=== PATIENT | male | born 1980 | race Caucasian/White ===

== ENCOUNTER 2020-12-05 14:35 | Outpatient (RCR) | payer BC, SELFPAY | END 2021-01-24 23:59 | LOC: IMMUN 14:35 | PROVIDERS: Visit Provider Family Medicine | DX: Z23 Encounter for immunization (principal) | CPT/HCPCS: 0001A; 91300 ==

== ENCOUNTER 2025-01-24 20:17 | Emergency (ER) | payer OTHER, BC, SELFPAY ==
[2025-01-24 20:18] VITALS: BP 148/90; PULSE 73; RESP 14; TEMP 36.3; O2SAT 98; BMI 27.4
--- NOTE | 2025-01-24 20:35 | ED.RN ---
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
--- OUTSIDE RECORDS SUMMARY | 2025-01-24 20:54 | XMS RPT_ITS | CCD ---
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 Role Phone DARLINE MARTINEZ Unavailable Unavailable PHYSICIAN, NONE Unavailable Unavailable Abimael Casanova Attending Provider Wes Arndt Attending Unavailable Abimael Casanova Attending Unavailable Medications Current Medications Medication Drug Class(es) Dates Sig (Normalized) Sig (Original) ibuprofen 200 mg oral capsule (1 source) Nonsteroidal Anti-inflammatory Drug Start: 02-14-2023 take 1 capsule by mouth every six hours as needed Ibuprofen 200 mg capsule Active 200 mg PO EVERY 6 HOURS as needed February 14, 2023 12:00am Completed/Discontinued Medications Medication Drug Class(es) Dates Sig (Normalized) Sig (Original) amoxicillin 500 mg oral tablet (1 source) Penicillin-class Antibacterial Start: 05-09-2024 End: 01-05-2025 take 1 tablet by mouth three times daily Amoxicillin 500 mg tablet Discontinued 500 mg PO THREE TIMES A DAY 30 0 May 09, 2024 1:00am January 05, 2025 8:54am cephalexin 500 mg oral capsule (1 source) Cephalosporin Antibacterial Start: 07-03-2023 End: 07-10-2023 take 1 capsule by mouth three times daily Cephalexin 500 mg capsule Discontinued 500 mg PO THREE TIMES A DAY 21 7 0 July 03, 2023 1:00am July 09, 2023 1:00am July 10, 2023 1:26am cyclobenzaprine hydrochloride 10 mg oral tablet (1 source) Muscle Relaxant Start: 02-14-2023 End: 02-19-2023 take 1 tablet by mouth three times daily as needed for muscle spasms Cyclobenzaprine 10 mg tablet Discontinued 10 mg PO THREE TIMES A DAY as needed for muscle spasm 15 5 0 February 14, 2023 12:00am February 18, 2023 12:00am February 19, 2023 12:03am silver sulfADIAZINE 10 mg/ml topical cream (1 source) Sulfonamide Antibacterial Start: 07-03-2023 End: 05-09-2024 Silver Sulfadiazine (Silvadene) 1 % cream Discontinued 1 NMA TOPICAL TWICE A DAY 29 07July 03, 2023 1:00am May 09, 2024 3:08pm apply a 1.5 mm thickness Problems Problem Classification Problem Date Documented Da te Episodic/Chronic Jack (2 sources) Partial thickness burn; Translations: [Blisters, epidermal loss [second degree], unspecified site] 07-03-2023 Episodic Other injuries and conditions due to external causes (1 source) Muscle strain; Translations: [Other injury of unspecified body region, initial encounter] 02-14-2023 Episodic Results Test Name Value Interpretation Reference Range Facil ity Urgent Care Visit Reporton 0 01-05-2025 Urgent Care Visit Report [facility] [address], [address] [place] [address] OFFICE VISIT Date of Service: 01/05/25 MR#: [id number] Acct: [id number] Name: DELVIN PABLO Rep #: [id number] : 1980 Provider: JILLIAN Frias Age/Sex: 44/M Location: [facility] Status: Signed Intake Vital Signs 02/14/23 12:06 01/05/25 08:54 Height 6 ft 4 in BP 102/68 Position Sitting Respiration 16 Pulse 61 Temp 97.7 F L Temp Source Oral Pulse Oximetry (%) 98 Oxygen Delivery Method room air Intake Visit Reasons: SORE THROAT Accompanied by: Self Allergies No Known Allergies Allergy (Verified 01/05/25 09:01) Medications ???Medication ???Instructions ???Recorded ???Confirmed ???Type ibuprofen 200 mg capsule 200 mg PO Q6H PRN 02/14/23 5 History Nurse's Note: Patient has a ST. Patient states it started itching last night and then this morning its sore. Patient right ear is also bothering him and he has some sinus pressure and drainage going on. Patien t states that he always has some of that going on. PFSH Medical History Back pain Difficulty balancing Knee pain Neck pain Shoulder pain HPI HPI Details: DELVIN PABLO, is a 44 M who presents to the office today for complaint of sore throat starting last night. Patient describes his sore throat as a itchy type throat. He denies fever, chills or sweats. No nausea, vomiting or diarrhea. No hemoptysis, shortness of breath or difficulty breathing. No loss of taste or smell. No other associated symptoms or alleviating/aggravatin g factors. ROS Const Constitutional: Positive for other (ROS negative x6 except what was placed in HPI) Exam Const General: cooperative and healthy appearing HENMT Head: normal to inspection Ears: hearing grossly normal bilaterally and EAC's normal Nose: external nose normal and nasal discharge clear Mouth: oral mucosae normal Throat: abnormal tonsil bilaterally Resp Effort Inspection: normal respiratory effort Auscultation: Bilateral: Clear to Auscultation Cardio Rate: regular rate Rhythm: regular rhythm Neuro General: patient alert Psych Appearance: grossly normal Mental Status: mental status grossly normal Results POC Marie Rapid Strep POC Marie Rapid Strep Negative Last Edit by Maritza Cardona MA on 01/05/25 09:16 Coding Level of Care Code Off vis,est,level 3 Diagnoses Acute pharyngitis J02.9 Assessment and Plan Assessment and Plan (1) Acute pharyngitis: Status: Acute Plan: Patient tested negative for strep in the office today. Encouraged to get plenty of rest, drink lots of clear liquids, and use Tylenol or Ibuprofen (unless contraindicated) for fever and comfort. Patient also educated on other symptomatic management techniques. To be seen in 7-10 days if no improvement; sooner if worsening of symptoms. Patient advised of potential red flags and when appropriate to report to the ED. Patient verbalized understanding and agreement with all the above. Orders: Orders POC Marie Rapid Strep A Today 01/05/25 0934 Date Abimael Suero Signature: Date (if applicable) CC: Normal [facility] Urgent Care Visit Reporton 1 07-09-2023 Urgent Care Visit Report [facility] [address], [address] [place] [address] OFFICE VISIT Date of Service: 05/09/24 MR#: [id number] Acct: [id number] Name: DELVIN PABLO Rep #: [id number] : 1980 Provider: JILLIAN Villavicencio Age/Sex: 44/M Location: [facility] Status: Signed Intake Vital Signs 02/14/23 12:06 05/09/24 14:06 Height 6 ft 4 in BP 120/70 Blood Pressure Location Lt brachial Position Sitting Respiration 15 Pulse 66 Pulse Source NIBP Temp 98.0 F Temp Source Oral Pulse Oximetry (%) 97 Oxygen Delivery Method room air Intake Visit Reasons: CENTENO/ST/BILAT EAR PAIN/SINUS PRESSURE/PAIN Chief Complaint: CENTENO, ST, ear pain, face pain, diarrhea Doctor Naturopathic Required: No Is patient in pain?: Yes Allergies No Known Allergies Allergy (Verified 05/09/24 14:08) Medications ???Medication ???Instructions ???Recorded ???Confirmed ???Type ibuprofen 200 mg capsule 200 mg PO Q6H PRN 02/14/23 07/03/23 History amoxicillin 500 mg tablet 500 mg PO TID #30 tabs 05/09/24 05/09/24 Rx Have you fallen in the past year?: No Nurse's Note: CENTENO, ST, ear pain, face pain, diarrhea x 5 days. denies fever, cough, congestion. concern for flu, daughter with pneumonia PFSH Medical History Back pain Difficulty balancing Knee pain Neck pain Shoulder pain HPI HPI Chief Complaint: CENTENO, ST, ear pain, face pain, diarrhea Details: DELVIN PABLO, is a 44 M who presents to the office today for [facility] evaluation at the [facility] for approximately 1-week history of progressively worsening facial pressure/congestion with purulent postnasal drip, CENTENO, irritated/sore throat. Fever and diarrhea initially - now resolved. Currently no complaints of fever, chills, myalgias, fatigue, runny nose, or nausea/vomiting/diarrh ea. No complaints of chest pain/shortness of breath/dyspnea on exertion. Requesting POC screening for COVID-19 and influenza. No close contacts with similar complaints. No other associated symptoms and no other alleviating/aggravatin g factors. ROS Const Constitutional: No other (as above) Exam Const General: cooperative, healthy appearing and no acute distress Nutritional Appearance: average body habitus Orientation: alert, awake and oriented x3 HENMT Head: normal to inspection Ears: hearing grossly normal bilaterally, external ears normal, TM's normal bilaterally and EAC's normal Nose: external nose normal, nares normal, septum normal and no nasal discharge Face and sinus: normal facial exam, sinuses nontender (w/ R>L maxillary fullness to palpation) and face symmetric Mouth: oral mucosae normal, lip normal, tongue normal and oropharynx normal Throat: posterior oropharynx normal, tonsils normal, uvula midline and postnasal drainage (Purulent) Eyes General: appearance normal, both eyes and all related structures Neck Neck: normal visual inspection, full ROM, no meningeal signs, supple and lymphadenopathy (Bilateral anterior cervical lymph node swelling/tender to palpation) Neck mass: No Thyroid: thyroid normal Chest Chest palpation inspection: normal inspection of the chest Resp Effort Inspection: normal respiratory effort and able to speak in complete sentences Auscultation: Bilateral: Clear to Auscultation Cardio Palpation: normal PMI Rate: regular rate Rhythm: regular rhythm Heart Sounds: S1 normal, S2 normal, no gallops, no murmurs and no rubs Pulses: radial pulses present GI Inspection: normal to inspection Skin General: no rashes or lesions noted Neuro General: patient alert, patient awake and patient oriented x3 Cognition: normal cognition Speech: speech normal Psych Appearance: grossly normal Mental Status: mental status grossly normal Mood: congruent mood Affect: normal affect Speech and Movement: speech and movement normal Attitude: cooperative Diagnoses Acute maxillary sinusitis, unspecified J01.00 Contact with or exposure to other viral diseases Z20.828 Assessment and Plan Assessment and Plan (1) Acute maxillary sinusitis, unspecified: Status: Acute (2) Contact with or exposure to other viral diseases: Status: Acute Plan: See POC results. Amoxicillin as prescribed today. Supportive measures as instructed today. Follow-up with PCP in 3 to 5 days should symptoms not improve, sooner should symptoms worsen or any other concerns develop. Patient states acknowledging understanding all the above. Results POC MARIE Covid FluAB PCR POC Marie Covid PCR Not Detected Last Edit by Selene Lee on 05/09/24 14:27 POC MARIE FLU NOT DETECTED FLU A B Last Edit by Selene Lee on 05/09/24 14:27 Coding Level of Care Code Off vis,est,level 3 Assessment and Plan Assessment and Plan Orders: O (more content not included)... Normal [facility] Vital Signs Date Time Vital Sign Value Performing Clinician Tamiai faith 01-05-2025 08:54-0400 Body temperature 97.7 [degF] Abimael WALSH Work Phone: [facility] 01-05-2025 08:54-0400 Diastolic blood pressure 68 mm[Hg] Abimael WALSH Work Phone: [facility] 01-05-2025 08:54-0400 Heart rate 61 /min Abimael WALSH Work Phone: [facility] 01-05-2025 08:54-0400 Respiratory rate 16 /min Abimael WALSH Work Phone: [facility] 01-05-2025 08:54-0400 SaO2% (BldA) [Mass fraction] 98 % Abimael WALSH Work Phone: [facility] 01-05-2025 08:54-0400 Systolic blood pressure 102 mm[Hg] Abimael WALSH Work Phone: [facility] Encounters Encounter Date Encounter Type Care Provider Facility Start: 01-05-2025 End: 01-05-2025 Patient encounter procedure Abimael [facility]AL[facility] Work Phone: Start: 01-05-2025 End: 01-05-2025 ambulatory Abimael WASLH [facility] Start: 05-09-2024 End: 05-09-2024 ambulatory Wes WALSH Facility[place] Start: 07-03-2018 End: 07-03-2018 Patient encounter procedure DARLINE MARTINEZ Facility:A Payers Date Payer Category Payer Unknown [id number] 2018 Self-pay 1980 Unknown [id number] Unknown [id number] Unknown [id number] Social History Date Type Detail Facility Tobacco smoking stat us MEIS Unknown if ever smoked [facility] Work Phone: Start: 1980 Sex Assigned At Male [facility] Evaluation note Note Date & Type Note Facility Evaluation note No assessment information availa ble [facility] Work Phone: Reason for referral (narrative) Note Date & Type Note Facility Reason for referral (narrative) No reason for referral information available [facility] Work Phone: Summary Purpose Family History No Family History Records FoundNo Family History Records Found Advance Directives No Advanced Directives Records FoundNo Advanced Directives Records Found Chief Complaint and Reason for Visit Chief Complaint Admit Date SORE THROAT January 05, 2025 8:44a m Additional Source Comments (unrecognized sect ion and content) No Status Records FoundNo Status Records Found INFORMATION SOURCE (unrecogn ized section and content) DATE CREATED AUTHOR 07/03/2018 [facility] ([place]) DATE CREATED AUTHOR AUTHOR'S ORGANIZ ATION 01/07/2025 [facility] Teams (unrecognized sec tion and content) Team Status: Inactive Member Role/Relationship Status Dates JILLIAN Chavis Attending Provider Active Sta rt: January 05, 2025 End: January 05, 2025 Goals (unrecognized section and content) Goals may be documented in a n alternate section FOR RECORDS PERTAINING TO PATIENTS WHO ARE OR HAVE BEEN ENROLLED IN A CHEMICAL DEPENDENCY/SUBSTANCEABUSE PROGRAM, SOME INFORMATION MAY BE OMITTED. This clinical summary was aggregated from multiple sources. Caution should be exercised in using it in the provision of clinical care. This summary normalizes information from multiple sources, and as a consequence, information in this document may materially change the coding, format and clinical context of patient data. In addition, data may be omitted in some cases. CLINICAL DECISIONS SHOULD BE BASED ON THE PRIMARY CLINICAL RECORDS. [employer] [facility]. provides no warranty or guarantee of the accuracy or completeness of information in this document.
--- NOTE | 2025-01-24 21:02 | EDS_ITS ---
HPI History of Present Illness Chief Complaint: Laceration Narrative Narrative: 44-year-old male who denies significant past medical history, [id number], presents with injury to his left fifth fingertip that he sustained approximately an hour and a half ago. He was pushing a metal hopper that was full, when it became crushed between another empty metal hopper. He sustained a laceration to the tip of his left fifth digit. He only has pain when the area is being manipulated. He is unsure of his last tetanus immunization and denies other injury. Tetanus Immunization: [facility] Medical History Difficulty balancing Back pain Neck pain Knee pain Shoulder pain Home Medications Medication Instructions Recorded Last Taken Type ibuprofen 200 mg capsule 200 mg PO Q6H PRN pain 02/14 Unknown History cephalexin 500 mg capsule 500 mg PO Q6 #40 CAPSULES Unknown Rx Allergy/AdvReac Type Severity Reaction Status Date / Time No Known Allergies Allergy Verified 01/25/25 14:10 Social History Smoking Status: Former smoker ROS ROS ED ROS Narrative Review of systems positive for crush injury to tip of left fifth digit of the hand. Denies other injury. EXAM Physical Exam Narrative Exam Narrative: GCS 15. ABCs intact. Focused examination of the tip of the left fifth digit does show a 1 cm laceration running towards the finger pad and under the tip of the nail. There is no damage to the actual nail noted, but positive subungual hematoma. Full range of motion at the DIP and PIP of the fifth digit. Palpable radial pulse. Const Vital Signs: 01/24/25 20:18 Temperature 97.3 F L Temperature Source Temporal Pulse Rate 73 Respiratory Rate 14 Blood Pressure 148/90 H Blood Pressure Mean 109 Pulse Ox 98 Oxygen Delivery Method Room Air MDM MDM MDM Narrative Medical decision making narrative: Differential diagnosis includes but not limited to open tuft fracture versus crush injury with laceration to tip of fifth finger. He was given Tylenol 1 g orally, a Adacel immunization, and x-rays obtained of the left fifth digit. On my individual interpretation of the x-ray, there is an open tuft fracture. I reviewed the radiology report which confirms my independent interpretation. I discussed patient with Dr. Beck with hand surgery. He was given his first dose of Keflex here and prescription written to take 4 times a day for the next 10 days. Discussed with the patient nailbed removal and nailbed laceration repair. See procedure note below for details. Procedure note: Lidocaine 1% used as a metacarpal/digital block. Small amount needed to be used locally. Total of 5 simple interrupted sutures used in finger pad laceration that measured approximately 1.2 cm using 5-0 Ethilon. Additionally 1 small laceration, 0.5 cm and linear located laterally was repaired using 1 simple interrupted suture of 5-0 Ethilon. Nail was removed but left partially intact at the germinal matrix. Nailbed laceration repair of irregular 0.75 cm laceration was used using available 5-0 Vicryl with a total of 4 simple interrupted sutures. Patient tolerated procedure well. This was performed after finger soaking and cleansing of the wound. Vaseline gauze dressing applied per RN and patient placed in large bulky dressing. He is to follow-up with Dr. Beck tomorrow in clinic. He was given a workability note as well for his return to work tomorrow. Return instructions to the emergency department were reviewed. Disposition is discharged home in stable condition. History & Record Review Discussion w/independent historian: Patient Additional record(s) reviewed:: No prior records (No prior ED visits) Management Discussion w/another healthcare provider: Geophysicist (Dr. Beck, Plastic Surgery/Hand) Discharge Plan Triage Chief Complaint: Laceration ED Provider: Tip Agarwal Dx/Rx/DC Orders Clinical Impression: Open fracture of tuft of distal phalanx of finger, Nailbed laceration, finger, Crushing injury of distal finger Instructions: ED Crush Injury, Hand, ED Fracture, Finger, Open, ED Laceration, Hand: All Closures Prescriptions: New cephalexin 500 mg capsule 500 mg PO Q6 Qty: 40 0RF No Action ibuprofen 200 mg capsule 200 mg PO Q6H PRN (Reason: pain) Primary Care Provider: Care Physician,No Primary Referrals: Jimmie Beck MD [Med Staff - Active Staff] - 1 Day Care Physician,No Primary [Primary Care Provider] - Activity Restrictions/Additional Instructions: Take the antibiotic as directed. Return with increased bleeding, new or worsen ing symptoms. Follow-up with plastic surgery/hand tomorrow for wound check. Print Language: Vietnamese Disposition Disposition: Home, Self Care Discharge Date/Time: 01/24/25 23:33
--- NOTE | 2025-01-24 21:12 | RAD_ITS ---
PROCEDURE: FINGER(S) MIN 2 VIEWS 01/24/2025 REASON FOR EXAM: TRAUMA TECHNIQUE: FINGER(S) MIN 2 VIEWS COMPARISON: No FINDINGS: Distal laceration. Displaced tuft fracture, which is an open fracture. No foreign body or dislocation. RAD/Finger(s) Min 2 Views IMPRESSION: Distal 5th digit injury. [facility]
[2025-01-24] MEDS: Lidocaine 1% (20 ml mdv) 20 ML Vial INFILT (21:35)
[2025-01-24 22:18] VITALS: BP 146/90; PULSE 70; RESP 18; O2SAT 95
[2025-01-24 23:20] VITALS: BP 146/90; PULSE 70; RESP 18; TEMP 36.3; O2SAT 95
== END 2025-01-24 23:33 | disposition home or self-care (01) ==
PROVIDERS: Emergency Provider Emergency Medicine; Visit Provider Emergency Medicine
DX: S67.197A Crushing injury of left little finger, initial encounter (principal); Z87.891 Personal history of nicotine dependence; W31.89XA Contact with other specified machinery, initial encounter; S62.637B Displaced fracture of distal phalanx of left little finger, initial encounter for open fracture; Z23 Encounter for immunization
CPT/HCPCS: 11750; 11760; 73140; 90715; 99284

== ENCOUNTER → 2025-02-08 | Outpatient (CLI) | payer BC, SELFPAY ==
--- NOTE | 2025-02-08 11:35 | RAD_ITS ---
PROCEDURE: FINGER(S) MIN 2 VIEWS 02/08/2025 REASON FOR EXAM: FRACTURE OF DISTAL PHALANX OF SMALL FINGER TECHNIQUE: Three-view left 5th finger COMPARISON: Left 5th finger of 01/24/2025. RAD/Finger(s) Min 2 Views IMPRESSION: Again seen is a comminuted distal tuft fracture of the left 5th finger, with es sentially stable alignment noted. Some callus formation is noted. The fracture line remains apparent. Reading Location: [place] [address]
--- NOTE | 2025-02-08 11:35 | RAD_ITS ---
PROCEDURE: FINGER(S) MIN 2 VIEWS 02/08/2025 REASON FOR EXAM: FRACTURE OF DISTAL PHALANX OF SMALL FINGER TECHNIQUE: Three-view left 5th finger COMPARISON: Left 5th finger of 01/24/2025. RAD/Finger(s) Min 2 Views IMPRESSION: Again seen is a comminuted distal tuft fracture of the left 5th finger, with es sentially stable alignment noted. Some callus formation is noted. The fracture line remains apparent. Reading Location: [place] [address]
== END | disposition home or self-care (01) ==
LOC: RAD 11:34
PROVIDERS: Referring Provider Surgery Plastic and Reconstructive Surgery; Visit Provider Surgery Plastic and Reconstructive Surgery
DX: S62.639B Displaced fracture of distal phalanx of unspecified finger, initial encounter for open fracture (principal)
CPT/HCPCS: 73140

== ENCOUNTER → 2025-03-29 | Outpatient (CLI) | payer OTHER, BC, SELFPAY ==
--- NOTE | 2025-03-29 10:37 | RAD_ITS ---
PROCEDURE: HAND MIN 3 VIEWS 03/29/2025 REASON FOR EXAM: ASSESS LEFT SMALL FINGER TUFT FRACTURE TECHNIQUE: Procedure Code: EM Modality: DX Procedure: HAND MIN 3 VIEWS Laterality: Left COMPARISON: Left 5th finger study of 02/08/2025. RAD/Hand Min 3 Views IMPRESSION: Stable alignment of the distal tuft fracture of the left 5th finger noted. The fracture line remains apparent. No new osseous abnormality is seen. Reading Location: [id number]
== END | disposition home or self-care (01) ==
LOC: RAD 10:25
PROVIDERS: Referring Provider Physician Assistant; Visit Provider Physician Assistant
DX: S62.639B Displaced fracture of distal phalanx of unspecified finger, initial encounter for open fracture (principal)
CPT/HCPCS: 73130